=== PATIENT | male | born 1980 | race Caucasian/White ===

== ENCOUNTER 2024-05-18 13:31 | Observation (INO) | payer BC, SELFPAY ==
[2024-05-18] VITALS (9 sets, daily range): BP systolic 102–145; BP diastolic 62–93; BMI 26.1
[2024-05-18] MEDS: NSS 500 IV (07:42)
[2024-05-18 07:51] LABS: % Eosinophils 1.5 % (0-6); % Immature Granulocytes 0.1 % (0-0.5); % Lymphocytes 17.3 % (20.5-51.1); % Monocytes 6.3 % (1.7-9.3); % Neutrophils 73.8 % (42.2-75.2); Absolute Basophils 0.1 10^3/uL (0-0.2); Absolute Eosinophils 0.1 10^3/uL (0-0.7); Absolute Lymphocytes 1.2 10^3/uL (1.2-3.4); Absolute Monocytes 0.4 10^3/uL (0.1-0.6); Absolute Neutrophils 4.9 10^3/uL (1.4-6.5); Hematocrit 47.8 % (39.0-52.0); Hemoglobin 16.6 g/dL (13.0-18.0); Mean Corp Hgb Conc. 34.7 g/dL (33.0-37.0); Mean Corpuscular Hgb 31.6 pg (27.0-31.0); Mean Platelet Volume 10.3 fL (7.4-10.4); Nucleated Red Blood Cells % 0 % (-); Platelet Count 157 10^3/uL (130-400); Red Blood Cell Count 5.25 10^6/uL (4.70-6.10); Red Cell Dist. Width 11.9 % (11.5-14.5); White Blood Cell Count 6.7 10^3/uL (4.8-10.8)
[2024-05-18 08:02] LABS: Blood Urea Nitrogen 30 mg/dl (9-20); Calcium 9.6 mg/dl (8.4-10.2); Carbon Dioxide 30 mmol/L (22-30); Chloride 106 mmol/L (98-107); Estimated Creatinine Clearance 99 ml/min; Glucose 100 mg/dl (70-99); Potassium 4.5 mmol/L (3.5-5.1); Sodium 140 mmol/L (135-145); eGFR > 60.00
--- NOTE | 2024-05-18 08:25 | ED.GENMED ---
History of Present Illness
General
Chief Complaint: Dizziness
Source: patient
Exam Limitations: none
Time Seen by Provider: 05/18/24 07:22
History of Present Illness
History of Present Illness:
Patient woke up in the middle the night with disequilibrium. Some vertigo. No headache no double vision. Some nausea this morning. [place] fine last night at 10 PM when he went to bed. Remote history of TIA
If applicable-neuro sx onset
Onset of symptoms known: No
Time pt last seen normal is known: Yes
Date last time pt seen normal: 05/17/24
Time last time pt seen normal: 22:00
Past History
Past History
ED Past Medical History: Other (TIA/questionable CVA)
ED Past Surgical History: Orthopedic and Other (Nasal surgery)
Review of Systems
Review of Systems
All Other Systems: Not applicable
Constitutional: Denies fever
Respiratory: Reports no symptoms
Cardiac: Reports no symptoms
Phy Exam
Physical Exam
Physical Exam:
GENERAL: Alert and oriented in no apparent distress
EYE: Orbits normal.
NECK: Supple, no carotid bruit cranial nerves II through XII intact. Speech normal. [id number] normal. Stnb-nk-[id number] normal. Light touch intact.
ENT: Pharynx without erythema
CARDIAC: Regular rate and rhythm without any obvious murmurs.
LUNGS: Clear breath sounds,normal
ABDOMEN: Soft, without focal tenderness or distention
NEUROLOGICAL: Alert and oriented , horizontal nystagmus to the left. No rotatory or vertical nystagmus
SKIN: Warm and dry, no rash or lesion, no discoloration, skin intact.
MUSCULOSKELETAL: No edema,no deformity.Good color
PSYCH: Normal and appropriate interaction.
Course
Orders/Labs/Results
Orders:
Orders
05/18/24 07:31
Electrocardiogram (*1) Stat
Reason for Study: Other
Other Reason for Exam: neuro symptoms
CT Head & Neck Angio W/wo IV Urgent
Comment:
Reason For Exam: Disequilibrium
Cardiac Monitoring- Treatment ONCE
IV Insert/Care/Rem.- Treatment PRN
0.9% Sodium Chloride 500 ml [Nss] 500 ml IV BOLUS
05/18/24 07:44
Basic Metabolic Panel Urgent
Complete Blood Count/With Diff Urgent
05/18/24 13:06
Aspirin Chewable [Low Strength Aspirin] 324 mg PO NOW STA
Clopidogrel Bisulfate [Plavix] 300 mg PO NOW STA
05/18/24 13:20
Admit/Transfer Patient As Directed
Co-Sign Provider:
Level of Care: Observation services
Assign to:: Telemetry
Physician / Group: junito
Diagnosis: TIA
Reason for Telemetry: CVA/TIA
Date to Stop Telemetry: 05/21/24
Time to Stop Telemetry: 11:00
05/18/24 13:21
Code Status As Directed
Resuscitation Status: Full Code
PRN Pain Medication Management As Directed
May give lesser potent ordered pain med per pt: Yes
preference::
Protocol:: Medication orders for pain may be administered in a
manner that supports deferring to patient preference
when the pt is:
- Requesting an ordered lesser potent pain medication.
Least to most potent pain medications are defined
as: acetaminophen < NSAID < tramadol < opioids
(morphine, oxycodone, hydromorphone).
- Requesting a lesser dose of the same medication IF
ORDERED.
- Requesting a less intrusive route of administration
if both routes are prescribed by the provider (PO <
IV).
05/18/24 14:12
Acetaminophen [Tylenol/Feverall] 650 mg RECTAL Q4HPRN PRN
Acetaminophen [Tylenol] 650 mg PO Q4HPRN PRN
05/18/24 14:12
Case Management Consult ONCE
Case Management Consult: Discharge Planning
Comment: stroke/tia
DIETARY IP CONSULT Routine
Reason for Consult: stroke/TIA
NEUROLOGY CONSULT Urgent
Consulting Provider: Patrick Plaza
Was physician already notified: Yes
Entertainer & Comic Urgent
Activity As Directed
Activity Level: As Tolerated
NIH Stroke Scale As Directed
Directions: Per protocol
Comment: every shift and with any change in condition or mental status
Neurological Checks As Directed
Frequency: q4h
Additional Instructions:: q4h x 24h upon admission to the floor, then qshift & with any change in condition
and mental status
Patient Education As Directed
Type: Stroke education packet
Comment: provide to patient and family
Pneumatic Compression Sleeves As Directed
Type: Thigh high
Swallow Screening CVA/TIA ONLY As Directed
Comment: NPO until swallowing screening completed
If patient FAILS swallow screening:: NPO, Speech Therapy consult, Aspiration Precautions
If patient PASSES swallow screening, diet:: Cholesterol Lowering
Above diet order entered?: Yes- passed screening
Vital Signs As Directed
Frequency: Per unit guidelines
Ot Eval And Treat Routine
Pt Eval And Treat Routine
Activity Level: As Tolerated
Speech Therapy Eval & Treat Routine
DX Deep Vein Thrombosis Video Routine
05/18/24 16:00
Glycohemoglobin (HgbA1c) Routine
05/18/24 18:00
Atorvastatin [Lipitor] 40 mg PO QPM
05/19/24 07:39
Cardiovascular Evaluation IN AM
05/21/24 11:00
DC Protocol for Telemetry ONCE
Abnormal Lab Results
05/18/24
07:44
MCH 31.6 H pg
(27.0-31.0)
Lymphocytes % 17.3 L %
(20.5-51.1)
BUN 30 H mg/dl
(9-20)
Glucose 100 H mg/dl
(70-99)
05/18/24 07:44
05/18/24 07:44
Vital Signs
Initial and Last Documented VS:
Initial Vital Signs
Temp Pulse Resp BP Pulse Ox
97.6 F 74 16 145/90 98
05/18/24 07:16 05/18/24 07:16 05/18/24 07:16 05/18/24 07:16 05/18/24 07:16
Last Documented Vital Signs
Temp Pulse Resp BP Pulse Ox
98.7 F 60 16 130/76 95
05/19/24 15:27 05/19/24 15:27 05/19/24 15:27 05/19/24 15:27 05/19/24 15:27
MDM/Problems Addressed
Differential Diagnosis Includes:
Patient with disequilibrium/vertigo. Inner ear versus central. Possible history of central neurologic issue. Workup in progress. Will ask neurology for their opinion
*Pulse Oximetry
Patient hypoxic: no
*EKG
Interpreted by ED Provider?: Yes
Interpretation: normal
Comparison EKG: no comparison EKG present
Heart Rate: 65
Rate: normal
Rhythm: sinus
[place]: normal axis
Interval: normal interval
QRS Pattern: normal QRS
Ischemia: no ischemia
*Critical Care Note
Total Time (30-74mins, 75-104mins- exclusive of procedures): Not Applicable
Update Note
Update Note:
Seen by neuro who had a concern for CVA. Aspirin 325, Plavix 300 and admission
ED Attending Note
-
Portions of this chart may have been created with voice recognition software.� Occasional wrong word or��sound alike� substitutions may have occurred due to the inherent limitations of voice recognition software.
Discharge Plan
Departure
Patient Disposition: Admit
Date of Disposition: 05/18/24
Time of Disposition: 13:07
Presentation/result/management discussed w/ accepting MD/DO: Neurology
Discharge Problem:
Disequilibrium/possible CVA
Interventions
Interventions:
*Risk Screen - Suicide Last Done: 05/18/24 07:16
*General Assessment Last Done: 05/18/24 07:49
*Neglect/Abuse Screening Last Done: 05/18/24 07:16
*ED- Fall Risk Assessment Last Done: 05/18/24 07:49
*ED COVID-19 Vaccine History Last Done: 05/18/24 12:52
*Nursing Disposition Last Done: 05/18/24 14:00
ED- Neurological Assessment Last Done: 05/18/24 13:43
ED- Cardiac Assessment Last Done: 05/18/24 07:49
ED Swallowing Screen Last Done: 05/18/24 13:00
Discharge Date and Time
Discharge Date/Time: 05/18/24 17:42
--- NOTE | 2024-05-18 13:06 | HPS.HSE ---
Family Physician
-
Family Physician: * NONE
Chief Complaint
-
off balance
History of Present Illness
44-year-old with past medical history PFO, TIA presented to us with disequilibrium since last night . Patient went to bed fine . He woke up in the middle of the night walking into [place] . Patient was extremely off balance. Patient felt
lightheaded, dizzy and nauseous. He woke up this morning got his daughter ready for school. He was feeling as the room was spinning. Patient drove himself to the ER. Patient complained of dull frontal headache . Denies syncope. Patient denied
any blurry vision, numbness or tingling. Patient denied chest pain or short of breath. Patient denied abdominal pain, nausea, vomiting, diarrhea. Patient denied dysuria hematuria . Patient stop taking aspirin few months ago.
Patient received dose of aspirin and Plavix in ER. Admitting for further management
Medical History
Past Medical History
Past Medical History: Reports Other
Additional Past Medical History:
TIA, PFO
Past Surgical History: Reports Other
Additional Past Surgical History:
ACL repair, meniscus repair scarring of prostate, septal defect surgery
Social History
Tobacco: Non-smoker
Alcohol: Occasional
Drug: None
Personal: Single
Living: With Family
Family History
Family History: Not pertinent
Allergies / Home Medications
Allergies reflects when Allergies were last updated in [facility].
Home Medications with original date entered in [facility]
Allergy/Medication List:
Allergies
Allergy/AdvReac Type Severity Reaction Status Date / Time
Penicillins Allergy Hives Verified 05/18/24 07:19
Home Medications
naproxen sodium 220 mg tablet (Aleve) 220 mg PO BIDPRN PRN mild pain 05/18/24
Review of Systems
-
Constitutional: Reports No Symptoms
EENT: Reports No Symptoms
Respiratory: Reports No Symptoms
Cardiac: Reports No Symptoms
Abdomen/GI: Reports No Symptoms
: Reports No Symptoms
Musculoskeletal: Reports No Symptoms
Skin: Reports No Symptoms
Neurological: Reports Dizzy
Endocrine: Reports No Symptoms
Hematologic/Lymphatic: Reports No Symptoms
Psych: Reports No Symptoms
Physical Exam
Vital Signs
Vital Signs
Temp Pulse Resp BP Pulse Ox
97.6 F 84 18 109/62 99
05/18/24 07:16 05/18/24 11:00 05/18/24 11:00 05/18/24 11:00 05/18/24 11:00
Physical Exam
General: Well Developed, Well Nourished and No Apparent Distress
HEENT: NormoCephalic, Moist mucous membranes and Atraumatic
Respiratory: Clear
Cardiac: S1/S2 and Regular Rhythm; No Murmur or Rub
GI: Soft, Non Tender, Non Distended and Normal Bowel Sounds; No Organomegaly
Rectal: Deferred by Provider
Musculoskeletal: No Clubbing, No Cyanosis and No Edema
Skin: No Rash
Neuro: AO x 3 and Nonfocal/grossly intact
Psych: Calm
Laboratory Results
-
05/18/24 07:44
05/18/24 07:44
Data Reviewed
-
CT Scan: Report Reviewed by me
Lab Data: Labs Reviewed by me
Impression/Plan
-
# Possible CVA
# History of TIA
- Head neck CTA with no evidence of large vessel occlusion, or arterial dissection. Normal noncontrast CT of the head.
- Continue aspirin and Plavix
- Obtain MRI of head
-ECHO
- Obtain A1c, lipid profile
- Statin continued
- PT/OT consult
- Neurology consulted
#History of PFO
-ECHO with bubble study.
# DVT prophylaxis
- SCDs
# CODE STATUS
- Full code
[2024-05-18] MEDS: PLAVIX 300 MG PO (13:29)
[2024-05-18] MEDS: LOW STRENGTH ASPIRIN 324 MG PO (13:29)
--- NOTE | 2024-05-18 13:34 | W.PN.UPDATE ---
Update Note
Progress Note Update
This is an addendum to H&P written by PAPER INSERTER Kaylah Crain
I saw and examined the patient.
The PAPER INSERTER's note was reviewed and I agree with the note.
Comment:
Mr. Albert Zaragoza is a 44 yo man with hx prior TIA and PFO presents to the ER with disequilibrium that occurred overnight. Currently symptoms improved but not completely resolved.
Triage VS: T 97.6, P 74, RR 16, BP 145/90, SpO2 98%
Exam: MEKA, EOMI, no nystagmus, no facial asymmetry, 5/5 strength upper and lower extremities, no pronator drift. slight difficulty FNF on left.
LABS: WBC 6.7, Hg 16.6, PLT 157, Na 140, K+ 4.5, CO2 30, BUN 30, Cr 0.9, Glucose 100, Ca 9.6
CT HEAD
IMPRESSION:
1. No evidence of large vessel occlusion, or arterial dissection.
2. Normal noncontrast CT of the head.
MAR: asa 324, Plavix 300, NS bolus
Disequilibrium
Hx TIA in 2010 - patient was discussing recruitment in study for PFO closure with [facility] Attendant at [place] then did not follow up. He was prescribed daily aspirin, no longer taking.
-admit to telemetry
-CTA results above
-MRI
-TTE with bubble; may now be candidate for PFO closure.
-PT/OT/ST
-continue daily asa/plavix; s/p loading in the ER
-Neurology consult
--- NOTE | 2024-05-18 13:53 | CON.NEURO ---
Neuro Assessment/Plan
Assessment
brainstem stroke
with dysequilibrium, left pronator drift, right sided vibratory loss
CTA is normal
Plan
ASA 324 chew + ASA 81
Plavix 300 + Plavix 75 daily
start Lipitor 20 for now; CTA is clean
discussed management options inpatient vs outpatient;
decision for admit, tele, MRI, ECHO
Consultation
Order
Date of Consultation: 05/18/24
Requesting Provider: Colton Ness
Reason for Consult: dizziness
Subjective/Objective
Subjective Data
Date of Service: May 18, 2024
44 year old man with prior TIA 2010, PFO, presents with dizziness. Feels like he is on a boat in the ocean. Woke up with the symptoms. no weakness/numbness. He was started on aspirin after the previous TIA, and recently has not been good about
taking it
Objective Data
Vital Signs
Temp Pulse Resp BP Pulse Ox
36.4 C 66 26 109/62 99
05/18/24 07:16 05/18/24 13:33 05/18/24 13:33 05/18/24 11:00 05/18/24 11:00
Lab Results
05/18/24 07:44
05/18/24 07:44
Sodium 140 mmol/L (135-145) 05/18/24 07:44
Potassium 4.5 mmol/L (3.5-5.1) 05/18/24 07:44
BUN 30 mg/dl (9-20) H 05/18/24 07:44
Glucose 100 mg/dl (70-99) H 05/18/24 07:44
Calcium 9.6 mg/dl (8.4-10.2) 05/18/24 07:44
Patient Allergies
Penicillins Allergy (Verified 05/18/24 07:19)
Hives
Physical Exam
-
AAOx3
face symmetric
left pronator drift
trace right sided vibratory loss
Medications
-
Active Medications
Generic Name Dose Route Start Last Admin
Trade Name Freq PRN Reason Stop Dose Admin
Aspirin 81 mg 05/19/24 08:00
Aspirin 81 Mg (Enteric Coated) Tablet PO 06/16/24 07:59
DAILY HOLLIS
Clopidogrel Bisulfate 75 mg 05/19/24 08:00
Clopidogrel 75 Mg Tablet PO 06/08/24 08:01
DAILY HOLLIS
Home Medications
�Medication �Instructions �Recorded
naproxen sodium 220 mg tablet 220 mg PO BIDPRN PRN mild pain 05/18/24
(Aleve)
--- NOTE | 2024-05-18 15:59 | PTOTSP ---
Dysphagia Evaluation
Oral/pharyngeal stages of swallowing within functional limits based on clinical bedside swallowing evaluation.
No dysarthria or aphasia observed. Speech/language evaluation held at present.
Recommend:
1. Regular, Thin Liquids
2. Medications as best tolerated
3. General aspiration precautions including upright for PO intake
4. Will f/u to determine if video swallow study warranted pending results of MRI of Brain
[2024-05-18] MEDS: LIPITOR 40 MG PO (18:23)
[2024-05-19 03:24] VITALS: BP 101/62
[2024-05-19 06:00] VITALS: BMI 25.4
[2024-05-19 07:30] VITALS: BP 127/70
[2024-05-19] MEDS: ASPIR LOW (ENTERIC COATED) 81 MG PO (07:55)
[2024-05-19] MEDS: PLAVIX 75 MG PO (07:55)
[2024-05-19 08:45] LABS: HDL Cholesterol 56 mg/dl; LDL Cholesterol, Calculated 109 mg/dl; Total Cholesterol 178 mg/dl (50-199); Triglyceride 69 mg/dl (10-149); Very Low Density Lipoprotein 13 mg/dl (0-30)
--- NOTE | 2024-05-19 09:00 | W.PN.HOSP.TC ---
Today's Communication/Plan
-
Discharge planning today
Assessment / Plan
Assessment / Plan
Physical exam:
General: Well Developed, Well Nourished and No Apparent Distress
HEENT: Normocephalic, Atraumatic and Moist Mucous Membranes
Respiratory: Clear to Auscultation; Negative Wheezes, Rales or Rhonchi
Cardiac: Regular Rhythm and S1/S2
GI: Soft, Nontender and Nondistended
Musculoskeletal: No Clubbing, No Cyanosis and No Edema
Neuro: Awake, Alert and Oriented, no neuro deficits
Psych: Calm
A/P:
TIA:
Aspirin Plavix for 21 days and continue statins
CT of the head, CTA of the head and neck, and MRI of the brain unremarkable except for disla malformation type I.
Echocardiogram unremarkable
Neurology consult appreciated-discussed with neurology today
PT OT eval appreciated
Dizziness:
Meclizine added per neurology
DVT prophylaxis:
SCDs
CODE STATUS:
Full code
Anticipated Discharge: Today
Subjective/Interval History
-
Date of Service: May 19, 2024
Patient feels better but still having some dizziness.
Objective Data
-
Vital Signs:
Vital Signs
Temp Pulse Resp BP Pulse Ox
98.4 F 57 16 127/70 100
05/19/24 07:30 05/19/24 07:30 05/19/24 07:30 05/19/24 07:30 05/19/24 08:00
I&O
05/18/24 05/19/24 05/20/24
06:59 06:59 06:59
Intake Total 480 / 480
Output Total 300 / 300
Balance 180 / 180
[2024-05-19 11:31] VITALS: BP 119/65
[2024-05-19 11:48] VITALS: BP 119/65; PULSE 60; O2SAT 94
--- NOTE | 2024-05-19 14:32 | W.PN.NEURO.1 ---
Today's Communication / Plan
-
d/c home
Neuro Assessment/Plan
Assessment
brainstem stroke - too small to see on MRI
with dysequilibrium, left pronator drift, right sided vibratory loss which persists.
brain MRI normal
CTA is normal
LDL 109, HDL 56
Plan
ASA 81
Plavix 75 daily
Lipitor 40
try Meclizine 25 TID, and if not effective then Valium 2 mg BID as needed until symptoms resolve
if not improving then he can try vestibular therapy
Subjective/Objective
Subjective Data
Date of Service: May 19, 2024
ambulated and felt more dizzy today
Objective Data
Vital Signs
Temp Pulse Resp BP Pulse Ox
36.9 C 60 18 119/65 94
05/19/24 11:31 05/19/24 11:31 05/19/24 11:31 05/19/24 11:31 05/19/24 11:31
Lab Results
05/18/24 07:44
05/18/24 07:44
Sodium 140 mmol/L (135-145) 05/18/24 07:44
Potassium 4.5 mmol/L (3.5-5.1) 05/18/24 07:44
BUN 30 mg/dl (9-20) H 05/18/24 07:44
Glucose 100 mg/dl (70-99) H 05/18/24 07:44
Calcium 9.6 mg/dl (8.4-10.2) 05/18/24 07:44
LDL Cholesterol, Calc 109 mg/dl 05/19/24 07:39
Patient Allergies
Penicillins Allergy (Verified 05/18/24 07:19)
Hives
Physical Exam
-
left pronator drift
right sided vibratory loss
--- NOTE | 2024-05-19 14:33 | W.DCSUMMARY ---
Discharge Summary
Discharge Data
Date of Admission: 05/18/24
Date of Discharge: 05/19/24
-
Pending Results: No
Hospital Course
Patient 44-year-old male with history of TIA, PFO, presented to the hospital with dizziness. Neurology consulted. Patient had CT head and CTA of the head and neck unremarkable. He also had an MRI of the brain with Chiari malformation type I but
no acute stroke visualized nevertheless neurology feels he had a brainstem stroke despite negative MRI. Neurology recommended aspirin and Plavix for 21 days and statins. Neurology also added some meclizine. Neurology cleared him for discharge
today. He participated with PT and OT today. He also had an echocardiogram unremarkable. He will be discharged in relatively stable condition today.
Discharge duration: 34 minutes
Discharge Plan
-
Patient Disposition: Home (Routine Discharge)
Discharge Diagnosis/Procedures: Brainstem stroke. Chiari I malformation. Vertigo.
Diet: Low Cholesterol
Activity: As tolerated
Blood Work: Please PCP to order CBC, BMP within 1 week
Referrals:
Patrick Plaza MD [Active] - in two to four weeks
Ivan Abarca MD [Family Provider] - in less than 1 week
Prescriptions:
New
aspirin 81 mg Tablet,Delayed Release (Dr/Ec)
81 mg PO DAILY Qty: 30 0RF
atorvastatin 40 mg Tablet
40 mg PO QPM 30 Days Qty: 30 0RF
clopidogrel 75 mg Tablet
75 mg PO DAILY 21 Days Qty: 21 0RF
meclizine 25 mg tablet
25 mg PO BID PRN (Reason: dizziness) Qty: 20 0RF
Discontinued
naproxen sodium [Aleve] 220 mg Tablet
220 mg PO BIDPRN PRN (Reason: mild pain)
Discharge Orders:
Discharge Patient (As Directed); Ordered 05/19/24
Ordered By: Ranulfo Patton
Discharge Date and Time
Discharge Date/Time: 05/19/24 19:14
Print Language: SLOVENIAN
[2024-05-19] MEDS: ANTIVERT 25 MG PO (15:23)
[2024-05-19 15:27] VITALS: BP 130/76
--- NOTE | 2024-05-19 15:49 | CM ---
wholesale account manager reviewed patient's chart and met with patient and kelly states he lives alone in a 2 story home, patient is independent with adl's and ambulation, no dme, patient drives home today no needs, patient is an OBS patient.
PCP: Dr Abarca
Pharmacy; [facility] on [facility]
[2024-05-19] MEDS: ANTIVERT PO (16:08)
== END 2024-05-19 19:14 | disposition home or self-care (01) ==
LOC: 4 WEST ACU 13:31
PROVIDERS: Registered Nurse; ADMITTING PHYSICIAN Student in an Organized Health Care Education/Training Program; ATTENDING PHYSICIAN Hospitalist; CONSULT PHYSICIAN Psychiatry & Neurology Clinical Neurophysiology; EMERGENCY PHYSICIAN Emergency Medicine; FAMILY PHYSICIAN Family Medicine
DX: I67.89 Other cerebrovascular disease (principal); G46.3 Brain stem stroke syndrome; R42 Dizziness and giddiness; G93.5 Compression of brain; M50.01 Cervical disc disorder with myelopathy, high cervical region; R11.0 Nausea; Q21.12 Patent foramen ovale; R51.9 Headache, unspecified; Z88.0 Allergy status to penicillin; Z79.82 Long term (current) use of aspirin; Z79.02 Long term (current) use of antithrombotics/antiplatelets; Z86.73 Personal history of transient ischemic attack (TIA), and cerebral infarction without residual deficits; Z60.2 Problems related to living alone
CPT/HCPCS: 70496; 70498; 70551; 80048; 80061; 83036; 85025; 92610; 93005; 93306; 96360; 96361; 97112; 97162; 97166; 99285; G0378; Q9967